=== PATIENT | female | born 1935 | race Caucasian/White ===

== ENCOUNTER 2018-07-02 16:14 | Inpatient (IN) | payer MEDICARE, BC ==
[~2018-07-02] VITALS: Ht 147.3 cm; Wt 52.5 kg
[~2018-07-02 16:14] MED LIST: ETOMIDATE 40 MG/20 ML ONE; PROPOFOL 10 MG/ML, 100ML IV ONE; VECURONIUM 10 MG ONE
[2018-07-02] MEDS ORDERED: PLEASE ENTER ALLERGIES MC SCH ×2 (17:00→17:31)
[2018-07-02] MEDS ORDERED: SODIUM CHLORIDE 0.9% 1,000ML IVBOLUS ONE (17:00)
[2018-07-02] MEDS ORDERED: CEFTRIAXONE 1,000 MG in SODIUM CHLORIDE 0.9% 50 ML IVPB ONE (17:00)
[2018-07-02] MEDS ORDERED: VECURONIUM 10 MG IVPush ONE (17:00)
[2018-07-02] MEDS ORDERED: ETOMIDATE 40 MG/20 ML IVPush ONE (17:00)
[2018-07-02] MEDS ORDERED: SODIUM CHLORIDE FLUSH 10ML SYR IVF ONE (17:00)
[2018-07-02] MEDS ORDERED: CEFTRIAXONE PMX 1GM/50ML 50 ML IVPB ONE (17:28)
[2018-07-02 17:38] LABS: BASOPHILS # (AUTO) 0.02 x10^3/uL (0-0.1); BASOPHILS % (AUTO) 0 % (0-1); EOSINOPHILS % (AUTO) 0 % (1-7); LYMPHOCYTES # (AUTO) 0.39 x10^3/uL (1-3.4); LYMPHOCYTES % (AUTO) 4 % (22-44); MD NO; MEAN CORPUSCULAR HEMOGLOBIN 30.8 pg (27.0-34.8); MEAN CORPUSCULAR HGB CONC 32.8 g/dL (32.4-35.8); MEAN CORPUSCULAR VOLUME 93.8 fL (80-100); MEAN PLATELET VOLUME 8.3 fL (7.4-10.4); MONOCYTES # (AUTO) 0.15 x10^3/uL (0.2-0.8); MONOCYTES % (AUTO) 2 % (2-9); NEUTROPHILS # (AUTO) 8.21 x10^3/uL (1.8-6.8); NEUTROPHILS % (AUTO) 94 % (42-75); PLATELET COUNT 128 x10^3/uL (130-400); RED BLOOD COUNT 4.68 x10^6/uL (3.82-5.3); RED CELL DISTRIBUTION WIDTH 15.6 % (9.6-15.2)
[2018-07-02 18:01] LABS: ALANINE AMINOTRANSFERASE 36 U/L (12-78); ALBUMIN 2.2 g/dL (3.4-5.0); ANION GAP 14 mmol/L (5-15); CALCIUM 8.8 mg/dL (8.5-10.1); CHLORIDE 116 mmol/L (98-107); CREATININE 0.76 mg/dL (0.55-1.02)
[2018-07-02 18:03] LABS: ALKALINE PHOSPHATASE 170 U/L (45-117); BILIRUBIN,TOTAL 0.9 mg/dL (0.2-1.0); TOTAL PROTEIN 5.8 g/dL (6.4-8.2)
[2018-07-02] MEDS: PROPOFOL 100 ML IV PRN (18:15)
[2018-07-02 18:30] LABS: CULTURE INDICATED? YES; MICROSCOPIC INDICATED
[2018-07-02] MEDS ORDERED: ONDANSETRON ODT 4 MG PO PRN (19:30)
[2018-07-02] MEDS ORDERED: hydrALAzine 20 MG/ML, 1ML IVPush PRN (19:30)
[2018-07-02] MEDS ORDERED: ACETAMINOPHEN 325 MG TABLET PO PRN (19:30)
[2018-07-02] MEDS ORDERED: DOCUSATE 100 MG CAPSULE PO PRN (19:30)
[2018-07-02] MEDS ORDERED: LABETALOL 5MG/ML, 20ML IVPush PRN (19:30)
[2018-07-02] MEDS ORDERED: morphine SULFATE 10 MG/ML, 1ML IVPush PRN (19:30)
[2018-07-02] MEDS ORDERED: ONDANSETRON 2MG/ML, 2ML IVPush PRN (19:30)
[2018-07-02] MEDS ORDERED: BISACODYL 10 MG SUPP PR PRN (19:30)
[2018-07-02] MEDS ORDERED: POLYETHYLENE GLYCOL 17 GM PACKET PO PRN (19:30)
[2018-07-02] MEDS ORDERED: PROMETHAZINE 25 MG/ML, 1ML IM PRN (19:30)
[2018-07-02 19:44] VITALS: BP 105/65
[2018-07-02] MEDS ORDERED: VANCOMYCIN PMX 1GM/200ML 200 ML IV ONE (20:00)
[2018-07-02] MEDS ORDERED: VANCOMYCIN PER PHARMACY MC PRN (20:00)
[2018-07-02 20:23] LABS: FREE T4 (FREE THYROXINE) 0.79 ng/dL (0.76-1.46); TROPONIN I 0.045 ng/mL (0.000-0.045)
[2018-07-02 20:29] LABS: HEMOGLOBIN A1C 5.1 % (4.2-6.3)
[2018-07-02] MEDS ORDERED: PHARMACOKINETIC MONITORING MC PRN (20:30)
[2018-07-02] MEDS: HEPARIN 5,000 UNITS/ML, 1ML SQ SCH (21:28)
[2018-07-02] MEDS: PIPERACILLIN/TAZO/PMX 3.375GM 50 ML IV SCH (21:29)
[2018-07-02] MEDS: D5%-0.45NACL+KCL 20MEQ 1,000 ML IV SCH (21:29)
[2018-07-02] MEDS: VANCOMYCIN 700 MG in SODIUM CHLORIDE 0.9% 100 ML IV SCH (21:29)
[2018-07-02] MEDS: FAMOTIDINE 20 MG/2 ML IVPush SCH (21:32)
[2018-07-02] MEDS ORDERED: MIDAZOLAM 1 MG/ML, 2ML IVPush PRN (23:00)
[2018-07-02] MEDS ORDERED: LACTATED RINGERS 1,000 ML IVBOLUS ONE (23:00)
[2018-07-03] MEDS: PIPERACILLIN/TAZO/PMX 3.375GM 50 ML IV SCH ×4 (02:06→21:07)
[2018-07-03 02:26] LABS: TROPONIN I 0.069 ng/mL (0.000-0.045)
[2018-07-03] MEDS: HEPARIN 5,000 UNITS/ML, 1ML SQ SCH ×3 (04:28→23:14)
[2018-07-03] MEDS: D5%-0.45NACL+KCL 20MEQ 1,000 ML IV SCH ×2 (04:28→11:26)
[2018-07-03 04:44] LABS: MEAN CORPUSCULAR HEMOGLOBIN 30.8 pg (27.0-34.8); MEAN CORPUSCULAR VOLUME 93.2 fL (80-100); MEAN PLATELET VOLUME 8.4 fL (7.4-10.4); PLATELET COUNT 147 x10^3/uL (130-400); RED BLOOD COUNT 3.98 x10^6/uL (3.82-5.3); RED CELL DISTRIBUTION WIDTH 15.2 % (9.6-15.2)
[2018-07-03 04:45] LABS: ALANINE AMINOTRANSFERASE 32 U/L (12-78); ALBUMIN 1.9 g/dL (3.4-5.0); ANION GAP 10 mmol/L (5-15); CALCIUM 7.7 mg/dL (8.5-10.1); CHLORIDE 119 mmol/L (98-107); CHOLESTEROL, TOTAL 142 mg/dL (140-239); CREATININE 0.83 mg/dL (0.55-1.02)
[2018-07-03 04:47] LABS: ALKALINE PHOSPHATASE 147 U/L (45-117); BILIRUBIN,TOTAL 0.9 mg/dL (0.2-1.0); CHOL/HDL RATIO 2.3; HDL CHOL % 43 % (28-40); HDL CHOLESTEROL (DIRECT) 61 mg/dL (40-60); LDL CHOLESTEROL,CALCULATED 59 mg/dL (54-169); TOTAL PROTEIN 4.8 g/dL (6.4-8.2); TRIGLYCERIDES 109 mg/dL (50-200); VLDL CHOLESTEROL 22 mg/dL (0-25)
[2018-07-03 05:19] LABS: BASOPHILS % (AUTO) 0 % (0-1); EOSINOPHILS % (AUTO) 0 % (1-7); LYMPHOCYTES # (AUTO) 0.64 x10^3/uL (1-3.4); LYMPHOCYTES % (AUTO) 6 % (22-44); MD SCAN; MONOCYTES # (AUTO) 0.09 x10^3/uL (0.2-0.8); MONOCYTES % (AUTO) 1 % (2-9); NEUTROPHILS # (AUTO) 9.32 x10^3/uL (1.8-6.8); NEUTROPHILS % (AUTO) 93 % (42-75)
[2018-07-03] MEDS: ASPIRIN 81 MG TABLET EC PO SCH (05:40)
[2018-07-03 10:16] LABS: TROPONIN I 0.105 ng/mL (0.000-0.045)
[2018-07-03] MEDS ORDERED: SODIUM CHLORIDE 0.9% 1,000 ML IV SCH (14:30)
[2018-07-03] MEDS: PROPOFOL 100 ML IV PRN (15:15)
[2018-07-03] MEDS: NOREPINEPHRINE 4 MG in SODIUM CHLORIDE 0.9% 246 ML IV PRN (16:51)
[2018-07-03] MEDS: FAMOTIDINE 20 MG/2 ML IVPush SCH (21:07)
[2018-07-04] MEDS: PIPERACILLIN/TAZO/PMX 3.375GM 50 ML IV SCH ×4 (03:06→21:32)
[2018-07-04 04:32] LABS: MEAN CORPUSCULAR HEMOGLOBIN 31.1 pg (27.0-34.8); MEAN CORPUSCULAR HGB CONC 33.3 g/dL (32.4-35.8); MEAN CORPUSCULAR VOLUME 93.3 fL (80-100); RED BLOOD COUNT 3.47 x10^6/uL (3.82-5.3); RED CELL DISTRIBUTION WIDTH 15.7 % (9.6-15.2)
[2018-07-04 04:43] LABS: CHLORIDE 120 mmol/L (98-107)
[2018-07-04 04:50] LABS: ANION GAP 10 mmol/L (5-15); CALCIUM 7.5 mg/dL (8.5-10.1); CREATININE 0.99 mg/dL (0.55-1.02)
[2018-07-04 05:00] LABS: BASOPHILS # (AUTO) 0.01 x10^3/uL (0-0.1); BASOPHILS % (AUTO) 0 % (0-1); EOSINOPHILS # (AUTO) 0.01 x10^3/uL (0-0.4); EOSINOPHILS % (AUTO) 0 % (1-7); LYMPHOCYTES # (AUTO) 0.64 x10^3/uL (1-3.4); LYMPHOCYTES % (AUTO) 6 % (22-44); MD SCAN; MEAN PLATELET VOLUME 8.6 fL (7.4-10.4); MONOCYTES # (AUTO) 0.27 x10^3/uL (0.2-0.8); MONOCYTES % (AUTO) 3 % (2-9); NEUTROPHILS # (AUTO) 9.08 x10^3/uL (1.8-6.8); NEUTROPHILS % (AUTO) 91 % (42-75); PLATELET COUNT 100 x10^3/uL (130-400)
[2018-07-04] MEDS: DEXTROSE 5% 1,000 ML IV SCH ×3 (05:59→19:07)
[2018-07-04] MEDS: ASPIRIN 81 MG TABLET EC PO SCH (06:39)
[2018-07-04] MEDS: HEPARIN 5,000 UNITS/ML, 1ML SQ SCH ×2 (08:17→14:55)
[2018-07-04] MEDS ORDERED: PROPOFOL 100 ML IV PRN (09:54)
[2018-07-04] MEDS: VANCOMYCIN 700 MG in SODIUM CHLORIDE 0.9% 100 ML IV SCH (09:54)
[2018-07-04] MEDS ORDERED: SENNA/DOCUSATE TABLET NG PRN (10:00)
[2018-07-04] MEDS ORDERED: LIDOCAINE-MPF 1%, 2ML ENDO PRN (10:00)
[2018-07-04] MEDS ORDERED: LACTULOSE 20 GM/30 ML UDC NG PRN (10:00)
[2018-07-04] MEDS ORDERED: SENNOSIDES 8.8 MG/5 ML ORAL SOL NG PRN (10:00)
[2018-07-04] MEDS ORDERED: BISACODYL 10 MG SUPP PR PRN (10:00)
[2018-07-04] MEDS ORDERED: PHARMACY MAY ADJ FOR RENAL FX MC SCH (10:00)
[2018-07-04] MEDS: ALBUTEROL/IPRATROPIUM 2.5MG/0.5MG, 3 ML INLINE SCH ×4 (10:15→23:24)
[2018-07-04] MEDS: FENTANYL PF 100 MCG/2ML IVPush PRN (11:13)
[2018-07-04] MEDS: FAMOTIDINE 20 MG/2 ML IVPush SCH (21:32)
[2018-07-04] MEDS ORDERED: ATROPINE SYRINGE 0.1 MG/ML, 10ML ONE (23:50)
[2018-07-05] MEDS: HEPARIN 5,000 UNITS/ML, 1ML SQ SCH ×4 (00:30→23:05)
[2018-07-05] MEDS: DEXTROSE 5% 1,000 ML IV SCH ×2 (02:01→08:33)
[2018-07-05] MEDS: ALBUTEROL/IPRATROPIUM 2.5MG/0.5MG, 3 ML INLINE SCH ×6 (02:45→22:49)
[2018-07-05] MEDS: PIPERACILLIN/TAZO/PMX 3.375GM 50 ML IV SCH ×4 (03:44→20:28)
[2018-07-05 04:36] LABS: MEAN CORPUSCULAR HEMOGLOBIN 31.5 pg (27.0-34.8); MEAN CORPUSCULAR HGB CONC 33.8 g/dL (32.4-35.8); MEAN CORPUSCULAR VOLUME 93.2 fL (80-100); RED CELL DISTRIBUTION WIDTH 15.3 % (9.6-15.2)
[2018-07-05 04:49] LABS: ALANINE AMINOTRANSFERASE 25 U/L (12-78); ALBUMIN 1.4 g/dL (3.4-5.0); ANION GAP 10 mmol/L (5-15); CALCIUM 6.9 mg/dL (8.5-10.1); CHLORIDE 109 mmol/L (98-107)
[2018-07-05 04:52] LABS: ALKALINE PHOSPHATASE 114 U/L (45-117); BILIRUBIN,TOTAL 0.7 mg/dL (0.2-1.0); TOTAL PROTEIN 4.3 g/dL (6.4-8.2)
[2018-07-05 04:54] LABS: BASOPHILS # (AUTO) 0.01 x10^3/uL (0-0.1); BASOPHILS % (AUTO) 0 % (0-1); EOSINOPHILS # (AUTO) 0.02 x10^3/uL (0-0.4); EOSINOPHILS % (AUTO) 0 % (1-7); LYMPHOCYTES # (AUTO) 0.57 x10^3/uL (1-3.4); LYMPHOCYTES % (AUTO) 6 % (22-44); MD SCAN; MEAN PLATELET VOLUME 8.7 fL (7.4-10.4); MONOCYTES # (AUTO) 0.37 x10^3/uL (0.2-0.8); MONOCYTES % (AUTO) 4 % (2-9); NEUTROPHILS % (AUTO) 91 % (42-75); PLATELET COUNT 96 x10^3/uL (130-400)
[2018-07-05] MEDS ORDERED: ATROPINE SYRINGE 0.1 MG/ML, 10ML IVPush PRN (05:30)
[2018-07-05] MEDS: ASPIRIN 81 MG TABLET EC PO SCH (05:45)
[2018-07-05] MEDS ORDERED: THIAMINE 200 MG in SODIUM CHLORIDE 0.9% 50 ML IV SCH (09:00)
[2018-07-05] MEDS ORDERED: MAGNESIUM SULFATE PMX 4GM/100M 100 ML IVPB ONE (09:00)
[2018-07-05] MEDS ORDERED: POTASSIUM PHOSPHATE 44 MEQ in SODIUM CHLORIDE 0.9% 500 ML IV ONE (09:00)
[2018-07-05 15:34] LABS: ANION GAP 8 mmol/L (5-15); CALCIUM 6.9 mg/dL (8.5-10.1); CHLORIDE 109 mmol/L (98-107); CREATININE 0.83 mg/dL (0.55-1.02)
[2018-07-05] MEDS: SODIUM CHLORIDE 0.9% 1,000 ML IV SCH (16:01)
[2018-07-05] MEDS ORDERED: POTASSIUM CHLORIDE 10% 40 MEQ/30 ML UDC PO ONE (19:30)
[2018-07-05] MEDS: FAMOTIDINE 20 MG/2 ML IVPush SCH (20:28)
[2018-07-05] MEDS: VANCOMYCIN 700 MG in SODIUM CHLORIDE 0.9% 100 ML IV SCH (23:05)
[2018-07-06] MEDS: ALBUTEROL/IPRATROPIUM 2.5MG/0.5MG, 3 ML INLINE SCH ×2 (02:02→06:40)
[2018-07-06] MEDS: PIPERACILLIN/TAZO/PMX 3.375GM 50 ML IV SCH ×2 (02:57→08:37)
[2018-07-06] MEDS: SODIUM CHLORIDE 0.9% 1,000 ML IV SCH (04:16)
[2018-07-06] MEDS: NOREPINEPHRINE 4 MG in SODIUM CHLORIDE 0.9% 246 ML IV PRN ×2 (04:19→04:37)
[2018-07-06 04:53] LABS: ANION GAP 12 mmol/L (5-15); CALCIUM 6.2 mg/dL (8.5-10.1); CHLORIDE 111 mmol/L (98-107); CREATININE 0.87 mg/dL (0.55-1.02)
[2018-07-06] MEDS: FENTANYL PF 100 MCG/2ML IVPush PRN (05:22)
[2018-07-06 05:51] LABS: BASOPHILS # (AUTO) 0.01 x10^3/uL (0-0.1); BASOPHILS % (AUTO) 0 % (0-1); EOSINOPHILS % (AUTO) 0 % (1-7); LYMPHOCYTES # (AUTO) 0.74 x10^3/uL (1-3.4); LYMPHOCYTES % (AUTO) 7 % (22-44); MD SCAN; MEAN CORPUSCULAR HEMOGLOBIN 31.2 pg (27.0-34.8); MEAN CORPUSCULAR HGB CONC 33.7 g/dL (32.4-35.8); MEAN CORPUSCULAR VOLUME 92.6 fL (80-100); MEAN PLATELET VOLUME 10.1 fL (7.4-10.4); MONOCYTES # (AUTO) 0.25 x10^3/uL (0.2-0.8); MONOCYTES % (AUTO) 2 % (2-9); NEUTROPHILS # (AUTO) 9.22 x10^3/uL (1.8-6.8); NEUTROPHILS % (AUTO) 90 % (42-75); PLATELET COUNT 109 x10^3/uL (130-400); RED BLOOD COUNT 2.61 x10^6/uL (3.82-5.3); RED CELL DISTRIBUTION WIDTH 15.4 % (9.6-15.2)
[2018-07-06] MEDS ORDERED: SODIUM CHLORIDE 0.9%, 500ML IVBOLUS ONE (06:00)
[2018-07-06] MEDS: ASPIRIN 81 MG TABLET EC PO SCH ×2 (06:48→06:49)
[2018-07-06] MEDS: HEPARIN 5,000 UNITS/ML, 1ML SQ SCH (08:27)
[2018-07-06] MEDS ORDERED: LORazepam 2 MG/ML, 1ML IVPush PRN (12:00)
[2018-07-06] MEDS ORDERED: SODIUM CHLORIDE FLUSH 10ML SYR IVF SCH (12:00)
[2018-07-06] MEDS ORDERED: ATROPINE OPHTH SOLN 1%, 2ML BC PRN (12:00)
[2018-07-06] MEDS ORDERED: SCOPOLAMINE PATCH, 1.5MG PATCH.TD72 TD SCH (12:00)
[2018-07-06] MEDS ORDERED: MORPHINE SULFATE 4 MG/ML, 1ML IVPush PRN ×2 (12:00)
[2018-07-06] MEDS ORDERED: MORPHINE SULFATE 4 MG/ML, 1ML IVPush ONE (12:30)
[2018-07-06] MEDS ORDERED: LORazepam 2 MG/ML, 1ML IVPush ONE (12:30)
[2018-07-06] MEDS ORDERED: SODIUM CHLORIDE 0.9% 1,000 ML IV SCH ×2 (16:00)
== END 2018-07-06 17:29 | disposition expired | DRG 951 ==
LOC: ED 18:41 → EDIP 19:26 → CCU 20:05
PROVIDERS: ADMIT Internal Medicine; ATTEND Internal Medicine
PROC: 0BH17EZ Insertion of Endotracheal Airway into Trachea, Via Natural or Artificial Opening (ICD-10-PCS; principal; 2018-07-02)
PROC: 02HV33Z Insertion of Infusion Device into Superior Vena Cava, Percutaneous Approach (ICD-10-PCS; 2018-07-02)
PROC: 5A1945Z Respiratory Ventilation, 24-96 Consecutive Hours (ICD-10-PCS; 2018-07-02)
PROC: 0T9B70Z Drainage of Bladder with Drainage Device, Via Natural or Artificial Opening (ICD-10-PCS; 2018-07-02)
DX: Z68.24 Body mass index [BMI] 24.0-24.9, adult (principal); A41.9 Sepsis, unspecified organism; G93.41 Metabolic encephalopathy; J96.00 Acute respiratory failure, unspecified whether with hypoxia or hypercapnia; N17.0 Acute kidney failure with tubular necrosis; E43 Unspecified severe protein-calorie malnutrition; R65.21 Severe sepsis with septic shock; J18.1 Lobar pneumonia, unspecified organism; I50.21 Acute systolic (congestive) heart failure; Z99.11 Dependence on respirator [ventilator] status; N39.0 Urinary tract infection, site not specified; E87.0 Hyperosmolality and hypernatremia; J44.0 Chronic obstructive pulmonary disease with (acute) lower respiratory infection; E87.1 Hypo-osmolality and hyponatremia; E87.2 Acidosis; I42.9 Cardiomyopathy, unspecified; E11.52 Type 2 diabetes mellitus with diabetic peripheral angiopathy with gangrene; B96.20 Unspecified Escherichia coli [E. coli] as the cause of diseases classified elsewhere; E87.6 Hypokalemia; I08.0 Rheumatic disorders of both mitral and aortic valves; M19.90 Unspecified osteoarthritis, unspecified site; Z66 Do not resuscitate; I48.0 Paroxysmal atrial fibrillation; F03.90 Unspecified dementia, unspecified severity, without behavioral disturbance, psychotic disturbance, mood disturbance, and anxiety; I11.0 Hypertensive heart disease with heart failure; D69.6 Thrombocytopenia, unspecified; D63.8 Anemia in other chronic diseases classified elsewhere; Z79.82 Long term (current) use of aspirin; Z79.899 Other long term (current) drug therapy
CPT/HCPCS: 36415; 36600; 70450; 71045; 76770; 80048; 80053; 80061; 80202; 81001; 82533; 82803; 83036; 83605; 83735; 84100; 84145; 84439; 84443; 84478; 84484; 85025; 87040; 87070; 87077; 87081; 87086; 87186; 87205; 93005; 93306; 93922; 93926; 93970; 94002; 94003; 94640; 96365; 96375; 99285; G0378; J0696; J1644; J2250; J2543; J2704; J3010; J3370; J3411; J7070; J7620; J2060; J3475; J3480; J3490; J7030; J7040; J7050; J7120